=== PATIENT | female | born 1955 | race Caucasian/White ===

== ENCOUNTER 2017-10-23 16:36 | Inpatient (IN) | payer OTHER ==
[~2017-10-23] VITALS: Ht 144.8 cm; Wt 59.0 kg
[2017-10-23 18:59] LABS: BASOPHIL % 1.4 % (0-2); PLATELET COUNT 231 x10^3mcL (130-400); RED CELL DISTRIBUTION WIDTH 13.6 % (11.5-14.5)
[2017-10-23 19:12] LABS: CALCIUM 9.7 mg/dL (8.5-10.1); CARBON DIOXIDE 24.2 mmol/L (21-32); CREATININE SERUM 3.7 mg/dL (0.6-1.0); POTASSIUM SERUM 4.6 mmol/L (3.5-5.1)
[2017-10-23 19:16] LABS: ALBUMIN 4.6 g/dL (3.4-5.0); BILIRUBIN TOTAL 0.33 mg/dL (0.20-1.00)
[2017-10-23 19:18] LABS: TOTAL PROTEIN, SERUM 8.5 g/dL (6.4-8.2)
[2017-10-23] MEDS ORDERED: SIMVASTATIN40 M1 PO (21:23)
[2017-10-23] MEDS ORDERED: JANUVIA100 M1 PO (21:23)
[2017-10-23] MEDS ORDERED: LEVOTHYROXIN0.075 M2 PO (21:24)
[2017-10-23] MEDS ORDERED: ASPIR 8181 MG PO (21:24)
[2017-10-23] MEDS ORDERED: BENAZEPRIL HYDR20 M1 PO (21:24)
[2017-10-23] MEDS ORDERED: METFORMIN HCL1000 MG PO (21:24)
[2017-10-23 21:53] LABS: CHOLESTEROL/HDL RATIO 3.3; MAGNESIUM 2.1 mg/dL (1.8-2.4); PHOSPHOROUS 4.6 mg/dL (2.5-4.9)
[2017-10-23 21:57] LABS: T3 TOTAL 0.86 ng/mL
[2017-10-23 21:58] VITALS: BP 108/57
[2017-10-23 22:16] LABS: FREE T4 0.96 ng/dL (0.76-1.46); FREE THYROXINE INDEX 2.5 ug/dL (1.4-4.5); T4(THYROXINE) 8.2 ug/dL (4.7-13.3)
[2017-10-24 05:47] VITALS: BP 107/47
[2017-10-24 06:43] LABS: BASOPHIL % 0.4 % (0-2); PLATELET COUNT 210 x10^3mcL (130-400); RED CELL DISTRIBUTION WIDTH 13.4 % (11.5-14.5)
[2017-10-24 06:51] LABS: CALCIUM 7.8 mg/dL (8.5-10.1); CARBON DIOXIDE 22.6 mmol/L (21-32); CREATININE SERUM 1.4 mg/dL (0.6-1.0); MAGNESIUM 1.9 mg/dL (1.8-2.4); PHOSPHOROUS 2.5 mg/dL (2.5-4.9); POTASSIUM SERUM 4.7 mmol/L (3.5-5.1)
[2017-10-24 09:38] VITALS: BP 106/52
[2017-10-24 13:16] VITALS: BP 111/54
== END 2017-10-24 14:14 | disposition home or self-care (01) | DRG 241 ==
LOC: ED 16:36 → DU 21:10
PROVIDERS: Emergency Medicine; Internal Medicine
DX: K29.70 Gastritis, unspecified, without bleeding (principal); N17.0 Acute kidney failure with tubular necrosis; E11.51 Type 2 diabetes mellitus with diabetic peripheral angiopathy without gangrene; E03.9 Hypothyroidism, unspecified; I10 Essential (primary) hypertension; K21.9 Gastro-esophageal reflux disease without esophagitis; E78.00 Pure hypercholesterolemia, unspecified; E86.0 Dehydration; E78.1 Pure hyperglyceridemia; Z79.82 Long term (current) use of aspirin; Z79.84 Long term (current) use of oral hypoglycemic drugs; Z79.899 Other long term (current) drug therapy; Z90.49 Acquired absence of other specified parts of digestive tract
CPT/HCPCS: 82962; 83880; 84439; C9113; J2765; J7030; J7040; Q0092